=== PATIENT | male | born 1940 | race Caucasian/White ===

== ENCOUNTER 2018-02-08 07:41 | Emergency (ER) | payer MEDICARE, MEDICAID ==
[~2018-02-08] VITALS: Ht 160 cm; Wt 59.0 kg
[~2018-02-08 07:41] MED LIST: ASPI-1152 PO; BUSP10TA35 PO; MELO-107 PO; PANT40TA4 PO; ROSU10TA PO
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
--- NOTE | 2018-02-08 07:46 | NUR ---
PT NOTED IN BOXERS ONLY NO PANTS. NOTED DISHEVELED, UNKEMPT, IN DIRTY CLOTHES, NOTED FOUL SMELL ALL OVER.
[2018-02-08] MEDS ORDERED: IV NS 0.9% 1,000 ML BAG IV ONE (08:00)
--- NOTE | 2018-02-08 08:00 | NUR ---
LEFT MESSAGE FOR MORENO THE CAREGIVER [phone]
--- NOTE | 2018-02-08 08:06 | NUR ---
PATIENT TAKEN TO CT VIA STRETCHER.
--- NOTE | 2018-02-08 08:13 | NUR ---
PT BACK FROM CT
--- NOTE | 2018-02-08 08:25 | NUR ---
NEW IV STARTED ON LAC, 20. BLOOD DRAWN AND SENT TO LAB.
--- NOTE | 2018-02-08 08:27 | NUR ---
[employer]ORCE LAWYER AT BEDSIDE.
[2018-02-08 08:35] LABS: BASOPHILS # (AUTO) 0.1 /CMM (0.0-0.2); BASOPHILS % (AUTO) 0.8 % (0.0-2.0); EOSINOPHILS % (AUTO) 0.8 % (0.0-6.0); HEMATOCRIT 33 % (39-51); HEMOGLOBIN 11.3 g/dL (13.5-17.5); LYMPHOCYTES # (AUTO) 0.9 /CMM (0.8-4.8); LYMPHOCYTES % (AUTO) 6.9 % (20.0-44.0); MEAN CORPUSCULAR HEMOGLOBIN 30 PG (26.0-33.0); MEAN CORPUSCULAR HGB CONC 34 g/dl (31.0-36.0); MEAN CORPUSCULAR VOLUME 89 fL (80-96); MONOCYTES # (AUTO) 0.6 /CMM (0.1-1.30); MONOCYTES % (AUTO) 4.6 % (2.0-12.0); NEUTROPHILS # (AUTO) 11.9 /CMM (1.8-8.9); NEUTROPHILS % (AUTO) 86.9 % (43.0-81.0); PLATELET COUNT (AUTO) 473 /CMM (150-450); RED BLOOD CELL COUNT(AUTO) 3.74 MIL/uL (4.5-6.0); WHITE BLOOD COUNT (AUTO) 13.7 K/uL (4.3-11.0)
[2018-02-08 08:47] LABS: CARBON DIOXIDE 28 mmol/L (21-32); CHLORIDE 102 mmol/L (98-107); CREATININE 0.8 mg/dL (0.6-1.3); GLUCOSE 117 mg/dL (74-106); POTASSIUM 4.2 mmol/L (3.5-5.1); SODIUM SERUM 139 mmol/L (136-145); UREA NITROGEN, BLOOD 18 mg/dL (7-18)
[2018-02-08] MEDS ORDERED: CEFTRIAXONE 1GM BAG (ER ONLY) 50 ML IV ONE (08:47)
[2018-02-08 08:49] LABS: SERUM AMMONIA < 10 umol/L (11-32)
[2018-02-08 08:52] LABS: ALANINE AMINOTRANSFERASE 38 U/L (12-78); ALBUMIN 3.2 g/dL (3.4-5.0); ALCOHOL, BLOOD < 3 mg/dL (0-0); ALKALINE PHOSPHATASE 87 U/L (46-116); ASPARTATE AMINOTRANSFERASE 30 U/L (15-37); BILIRUBIN,DIRECT 0.1 mg/dL (0.0-0.2); BILIRUBIN,TOTAL 0.3 mg/dL (0.2-1.0)
[2018-02-08 08:53] LABS: ACETAMINOPHEN 0 ug/ml (10-30); SALICYLATE 1.6 mg/dL (2.8-20.0)
[2018-02-08 08:56] LABS: INR 0.98 (0.87-1.13)
[2018-02-08 08:57] LABS: TROPONIN I 0.012 ng/mL (0.00-0.056)
[2018-02-08 08:59] LABS: THYROID STIMULATING HORMONE 1.743 uIU/mL (0.358-3.74)
[2018-02-08] MEDS ORDERED: CEFTRIAXONE 1GM BAG (ER ONLY) 1 GM/50 ML PIGGYBACK IV ONE (09:00)
[2018-02-08] MEDS ORDERED: AZITHROMYCIN 500 MG in IV D5W 250 ML IV ONE (09:00)
[2018-02-08] MEDS ORDERED: VALS1TAB52 PO (09:18)
[2018-02-08] MEDS ORDERED: GEMF600T3 PO (09:18)
[2018-02-08] MEDS ORDERED: ATEN50TA PO (09:18)
[2018-02-08] MEDS ORDERED: DONE10TA44 PO (09:18)
[2018-02-08] MEDS ORDERED: RISP0.2515 PO (09:18)
[2018-02-08] MEDS ORDERED: ERGO500040 PO (09:18)
[2018-02-08] MEDS ORDERED: MEMA28CA PO (09:18)
[2018-02-08] MEDS ORDERED: MECL-102 PO (09:18)
--- NOTE | 2018-02-08 09:37 | NUR ---
NIECE, Jett Elias, does not wish to proceed with medical care recommended by Dr. Olivera. Patient given information related to possible complications, up to and including , which could occur as a result of leaving the hospital at this time. Patient verbalizes understanding of risks involved due to leaving against medical advice. Patient has signed AMA form.
--- NOTE | 2018-02-08 09:40 | NUR ---
IV removed NIECE REQUESTED, REFUSES TO FINISH ONGOING IV ANTIBIOTICS INFUSION. MD MADE AWARE. Catheter intact and site benign. Pressure and 4x4 applied to site. No bleeding noted.
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
[2018-02-08 09:55] VITALS: BP 130/71
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
== END 2018-02-08 09:55 | disposition left against medical advice (07) ==
LOC: ER 07:43
DX: J18.9 Pneumonia, unspecified organism (principal); F03.90 Unspecified dementia, unspecified severity, without behavioral disturbance, psychotic disturbance, mood disturbance, and anxiety; R41.82 Altered mental status, unspecified; R51 Headache; R79.1 Abnormal coagulation profile; R53.1 Weakness; Z59.0 Homelessness; Z79.82 Long term (current) use of aspirin; Z53.20 Procedure and treatment not carried out because of patient's decision for unspecified reasons; Z60.2 Problems related to living alone
CPT/HCPCS: 36415; 70450; 71045; 80048; 80076; 80329; 82140; 82962; 84443; 84484; 85025; 85730; 93005; 96365; 96367; 99285; A4606; G0480 ×2; J0456; J0696; J7030; J7060; Z7610